=== PATIENT | female | born 1940 | race Caucasian/White ===

== ENCOUNTER 2016-06-29 14:42 | Emergency (ER) | payer MEDICARE, BC ==
[2016-06-29 14:52] VITALS: BP 135/61
[2016-06-29 15:22] LABS: Hematocrit 44 % (35-47); Hemoglobin 14.3 g/dl (12.0-16.0); Mean Corpuscular HGB Conc 33 g/dl (31-36); Mean Corpuscular Hemoglobin 31 pg (27-31); Mean Corpuscular Volume 95 fL (80-97); Mean Platelet Volume 8 um3 (7.4-10.4); Red Blood Count 4.58 10^6/ul (4.0-5.4); Red Cell Distribution Width 13 % (10.5-15); White Blood Count 4.4 10^3/ul (3.5-10.8)
[2016-06-29 15:34] LABS: Albumin 3.9 g/dL (3.2-5.2); BUN/Creatinine Ratio 14.9 (8-20); Calcium 8.8 mg/dL (8.6-10.3); EGFR African American 74.7 (>60); EGFR Non-African American 58.1 (>60); Potassium 3.6 mmol/L (3.5-5.0); Total Bilirubin 0.6 mg/dL (0.2-1.0); Total Protein 6.9 g/dL (6.4-8.9)
[2016-06-29 15:35] LABS: Troponin I 0.01 ng/mL (<0.04)
--- NOTE | 2016-06-29 15:42 | RAD ---
HISTORY: Confusion, altered mental status COMPARISONS: Head CT dated June 09, 2013 TECHNIQUE: Multiple contiguous axial CT scans were obtained of the head without intravenous contrast. FINDINGS: HEMORRHAGE/INFARCT: There is no hemorrhage or acute infarct. MASSES/SHIFT: There is no mass or shift. EXTRA-AXIAL SPACES: There are no extra-axial fluid collections. SULCI AND VENTRICLES: The sulci and ventricles are normal in size and position for the patient's stated age. CEREBRUM: There is multifocal hypoattenuation of the periventricular and subcortical white matter. This is progressed compared to the 2014 examination BRAINSTEM: There are no focal parenchymal abnormalities. CEREBELLUM: There are no focal parenchymal abnormalities. VESSELS: The vessels are grossly normal. PARANASAL SINUSES: The paranasal sinuses are clear. ORBITS: The orbits are unremarkable. BONES AND SOFT TISSUE: No bone or soft tissue abnormalities are noted. OTHER: None IMPRESSION: 1. THERE IS MULTIFOCAL HYPOATTENUATION OF THE PERIVENTRICULAR AND SUBCORTICAL WHITE MATTER. WHILE THIS NONSPECIFIC, THE APPEARANCE IS SUGGESTIVE OF CHRONIC SMALL VESSEL ISCHEMIA. THIS HAS PROGRESSED FROM THE 2014 EXAMINATION. RECOMMEND CONSIDERATION OF CORRELATION WITH MRI OF THE NONACUTE SETTING. 2. NO ACUTE INTRACRANIAL PATHOLOGY.
[2016-06-29 16:51] LABS: Urine Bacteria 1+ (Absent); Urine Bilirubin Negative (Negative); Urine Glucose Negative (Negative); Urine Nitrite Positive (Negative)
[2016-06-29] MEDS ORDERED: cefTRIAXone VIAL(*) 1,000 MG in NS 0.9% 50 ML* 50 ML IVPB ONE (17:12)
[2016-06-29] MEDS ORDERED: cefTRIAXone(*) 1 GM ADVAN/BAG ONE (17:21)
--- NOTE | 2016-06-29 22:15 | ED ---
Alexandre Guevara Aidan, scribed for Monico Fitzpatrick MD on 06/29/16 at 1716 . Neurological HPI - HPI Summary HPI Summary: 75 y/o female presents to the ED with a complaint of 2 acute, moderate episodes of falling/neurological deficits. 3 days ago in the middle of the night, the patient went to the bathroom, lost her way and had an unwitnessed fall in the garage. Her found her unconscious shortly after he heard the fall. After her helped her back into bed, she got up, fell again, and lost consciousness. In the morning, she had no recollection of either incident. 2 days ago during the day, she dropped things on several occasions. Since then, her walk has become more of a shuffle. Pt denies any pain, slurred speech, facial droop, fever, vomiting, diarrhea, or lack or appetite. Hx of Alzheimers for 3 years. - History of Current Complaint Chief Complaint: EDNeurologicalDeficit Stated Complaint: STROKE LIKE SYMPTOMS Time Seen by Provider: 06/29/16 15:12 Hx Obtained From: Family/Heel Seat Flap Stapler - Hx Last Menstrual Period: 75 y/o female Onset/Duration: Sudden Onset, Started days ago, Resolved - Pt is not currently experiencing symptoms Timing: Intermittent Episodes Lasting: Onset Severity: Moderate Current Severity: None Number of Seizures: 0 - no seizures, just episodes of LOC Neurological Deficit Location: Generalized - diffuse Pain Intensity: 0 Pain Scale Used: 0-10 Numeric Character: Other: - 2 episodes of falling and losing consciousness, episodes of dropping objects 2 days ago, Pt's walk has become more of a shuffle Syncope Timin episodes 3 days ago Episode Lasting: Unknown - 1st episode was unwitness, however, Pt was found unconscious Number of Episodes: 2 - first unwitnessed, both resulted in LOC Syncope Context: Unwitnessed - first episode, Witnessed - second episode, Loss of Consciousness: Yes - after both episodes, At Rest - while walking and standing up Frequency: Episodes x___ - 2, Episodes Lasting ____ (in Mins/Days/Weeks/Years) - unknown duration of LOC Syncope Location: All Extremities - generalized LOC both times Aggravating: Nothing - unknown Alleviating: Unknown Associated Signs and Symptoms: Negative: Nothing - episodes of LOC, walk becoming more of a shuffle, Pt was dropping objects unintentionally 2 days ago - Allergy/Home Medications Allergies/Adverse Reactions: Allergies Allergy/AdvReac Type Severity Reaction Status Date / Time No Known Allergies Allergy Verified 06/29/16 14:52 Home Medications: Home Medications Aspirin EC Low Dose* [Ecotrin EC Low Dose*] 81 mg PO DAILY 06/29/16 [History Confirmed 06/29/16] Cholecalciferol [Vitamin D] 1,000 unit PO DAILY 06/29/16 [History Confirmed 08/10] Donepezil TAB* [Aricept TAB*] 10 mg PO DAILY 06/29/16 [History Confirmed ] Escitalopram (NF) [Lexapro (NF)] 30 mg PO DAILY 06/29/16 [History Confirmed 08/10] Memantine XR CAP* [Namenda XR CAP*] 28 mg PO DAILY 06/29/16 [History Confirmed 06/29/16] Multivitamins/Minerals TAB* [Theragran/minerals TAB*] 1 tab PO DAILY 06/29/16 [ History Confirmed 06/29/16] Rosuvastatin (NF) [Crestor (NF)] 10 mg PO DAILY 06/29/16 [History Confirmed 08/10] PMH/Surg Hx/FS Hx/Imm Hx Endocrine/Hematology History: Denies: Hx Diabetes Cardiovascular History: Reports: Hx Angina - prior to angioplasty, Hx Coronary Artery Disease - CHOLESTEROL CONTROL WITH MEDICATION, Hx Hypercholesterolemia, Hx Hypertension, Other Cardiovascular Problems/Disorders - Hx HTN, no longer being treated, Hx of murmur, Hx angioplasty Denies: Hx Pacemaker/ICD Comment Only: Hx Valvular Heart Disease - ANGIOPLASTY R/T VALVE PROBLEMS GI History: Reports: Other GI Disorders - Hx ulcer r/t excess use of excedrin Sensory History: Reports: Hx Contacts or Glasses, Hx Hearing Aid Opthamlomology History: Reports: Hx Contacts or Glasses Neurological History: Reports: Other Neuro Impairments/Disorders - forgetfulness Psychiatric History: Denies: Hx Panic Disorder - Cancer History Hx Chemotherapy: No Hx Radiation Therapy: No - Surgical History Surgery Procedure, Year, and Place: Angioplasty 1990 states no stents, tonsillectomy as a child, cholecystectomy 1968, done in . bilateral cataracts Hx Anesthesia Reactions: No Infectious Disease History: No Infectious Disease History: Denies: Traveled Outside the [place] in Last 30 Days - Family History Known Family History: Positive: Cardiac Disease - Social History Occupation: Retired Lives: With Family Alcohol Use: Weekly Substance Use Type: Reports: None Smoking Status (MU): Former Smoker Review of Systems Constitutional: Negative Eyes: Negative ENT: Negative Cardiovascular: Negative Respiratory: Negative Gastrointestinal: Negative Genitourinary: Negative Musculoskeletal: Negative Skin: Negative Neurological: Other - walk becoming more of a shuffle, Pt dropped things unintentionally 2 days ago Positive: Syncope - 2x, both with LOC Psychological: Normal All Other Systems Reviewed And Are Negative: Yes Physical Exam Triage Information Reviewed: Yes Vital Signs On Initial Exam: Initial Vitals Temp Pulse Resp BP Pulse Ox 98.2 F 70 16 135/61 100 06/29/16 14:46 06/29/16 14:46 06/29/16 14:46 06/29/16 14:46 06/29/16 14:46 Vital Signs Reviewed: Yes Appearance: Positive: Well-Appearing - comfortable, pleasant, alert, No Pain Distress Skin: Positive: Warm, Skin Color Reflects Adequate Perfusion, Dry Head/Face: Positive: Other - no bruising or abrasions, facial or scalp injuries Eyes: Positive: VANDANA ENT: Positive: Other - dry oral mucosa Neck: Positive: Supple, Nontender - soft, No Lymphadenopathy, Other: - no edema , no carotid bruits Respiratory/Lung Sounds: Positive: Clear to Auscultation, Other - comfortably breathing. Negative: Rales, Rhonchi, Wheezes Cardiovascular: Positive: RRR, Other - no gallops, S1, S2. Negative: Pulses are Symmetrical in both Upper and Lower Extremities - Left radial pulse diminished, Murmur, Rub Abdomen Description: Positive: Nontender, Soft. Negative: Distended Bowel Sounds: Positive: Present Musculoskeletal: Positive: Other - calves nontender, no pitting edema. Negative : Edema Left, Edema Right Neurological: Positive: Alert, Oriented to Person Place, Time, CN Intact II-III , Other - Finger to nose intact. Negative: Facial Droop, Slurred Speech, Pronator Drift Present - No pronator drift x4 extremities - Gabe Coma Scale Coma Scale Total: 15 Diagnostics - Vital Signs Vital Signs Temp Pulse Resp BP Pulse Ox 06/29/16 16:24 68 18 98 06/29/16 15:13 72 15 95 06/29/16 14:46 98.2 F 70 16 135/61 100 - Laboratory Lab Results: Lab Results 06/29/16 06/29/16 06/29/16 Range/Units 15:05 15:05 15:05 WBC 4.4 (3.5-10.8) 10^3/ul RBC 4.58 (4.0-5.4) 10^6/ul Hgb 14.3 (12.0-16.0) g/dl Hct 44 (35-47) % MCV 95 (80-97) fL MCH 31 (27-31) pg MCHC 33 (31-36) g/dl RDW 13 (10.5-15) % Plt Count 156 (150-450) 10^3/ul MPV 8 (7.4-10.4) um3 Neut % (Auto) 60.4 (38-83) % Lymph % (Auto) 24.3 L (25-47) % [place] % (Auto) 14.5 H (1-9) % Eos % (Auto) 0.2 (0-6) % Baso % (Auto) 0.6 (0-2) % Absolute Neuts (auto) 2.6 (1.5-7.7) 10^3/ul Absolute Lymphs (auto) 1.1 (1.0-4.8) 10^3/ul Absolute Monos (auto) 0.6 (0-0.8) 10^3/ul Absolute Eos (auto) 0 (0-0.6) 10^3/ul Absolute Basos (auto) 0 (0-0.2) 10^3/ul Absolute Nucleated RBC 0.01 10^3/ul Nucleated RBC % 0.1 Sodium 135 (133-145) mmol/L Potassium 3.6 (3.5-5.0) mmol/L Chloride 102 (101-111) mmol/L Carbon Dioxide 27 (22-32) mmol/L Anion Gap 6 (2-11) mmol/L BUN 14 (6-24) mg/dL Creatinine 0.94 (0.51-0.95) mg/dL Est GFR ( Amer) 74.7 (>60) Est GFR (Non-Af Amer) 58.1 (>60) BUN/Creatinine Ratio 14.9 (8-20) Glucose 94 (70-100) mg/dL Lactic Acid 1.0 (0.5-2.0) mmol/L Calcium 8.8 (8.6-10.3) mg/dL Total Bilirubin 0.60 (0.2-1.0) mg/dL AST 34 (13-39) U/L ALT 25 (7-52) U/L Alkaline Phosphatase 60 (34-104) U/L Troponin I 0.01 (<0.04) ng/mL Total Protein 6.9 (6.4-8.9) g/dL Albumin 3.9 (3.2-5.2) g/dL Globulin 3.0 (2-4) g/dL Albumin/Globulin Ratio 1.3 (1-3) Urine Color Urine Appearance Urine pH (5-9) Ur Specific [place] (1.010-1.030) Urine Protein (Negative) Urine Ketones (Negative) Urine Blood (Negative) Urine Nitrate (Negative) Urine Bilirubin (Negative) Urine Urobilinogen (Negative) Ur Leukocyte Esterase (Negative) Urine WBC (Auto) (Absent) Urine RBC (Auto) (Absent) Ur Squamous Epith Cells (Absent) Urine Bacteria (Absent) Urine Glucose (Negative) Urine Ascorbic Acid (Negative) 06/29/16 Range/Units 16:20 WBC (3.5-10.8) 10^3/ul RBC (4.0-5.4) 10^6/ul Hgb (12.0-16.0) g/dl Hct (35-47) % MCV (80-97) fL MCH (27-31) pg MCHC (31-36) g/dl RDW (10.5-15) % Plt Count (150-450) 10^3/ul MPV (7.4-10.4) um3 Neut % (Auto) (38-83) % Lymph % (Auto) (25-47) % [place] % (Auto) (1-9) % Eos % (Auto) (0-6) % Baso % (Auto) (0-2) % Absolute Neuts (auto) (1.5-7.7) 10^3/ul Absolute Lymphs (auto) (1.0-4.8) 10^3/ul Absolute Monos (auto) (0-0.8) 10^3/ul Absolute Eos (auto) (0-0.6) 10^3/ul Absolute Basos (auto) (0-0.2) 10^3/ul Absolute Nucleated RBC 10^3/ul Nucleated RBC % Sodium (133-145) mmol/L Potassium (3.5-5.0) mmol/L Chloride (101-111) mmol/L Carbon Dioxide (22-32) mmol/L Anion Gap (2-11) mmol/L BUN (6-24) mg/dL Creatinine (0.51-0.95) mg/dL Est GFR ( Amer) (>60) Est GFR (Non-Af Amer) (>60) BUN/Creatinine Ratio (8-20) Glucose (70-100) mg/dL Lactic Acid (0.5-2.0) mmol/L Calcium (8.6-10.3) mg/dL Total Bilirubin (0.2-1.0) mg/dL AST (13-39) U/L ALT (7-52) U/L Alkaline Phosphatase (34-104) U/L Troponin I (<0.04) ng/mL Total Protein (6.4-8.9) g/dL Albumin (3.2-5.2) g/dL Globulin (2-4) g/dL Albumin/Globulin Ratio (1-3) Urine Color Andra Urine Appearance Cloudy Urine pH 6.0 (5-9) Ur Specific [place] 1.017 (1.010-1.030) Urine Protein Negative (Negative) Urine Ketones Trace H (Negative) Urine Blood Negative (Negative) Urine Nitrate Positive H (Negative) Urine Bilirubin Negative (Negative) Urine Urobilinogen Positive H (Negative) Ur Leukocyte Esterase 2+ H (Negative) Urine WBC (Auto) 3+(>20/hpf) H (Absent) Urine RBC (Auto) Trace(0-2/hpf) (Absent) Ur Squamous Epith Cells Present H (Absent) Urine Bacteria 1+ H (Absent) Urine Glucose Negative (Negative) Urine Ascorbic Acid * H (Negative) Result Diagrams: 06/29/16 15:05 06/29/16 15:05 Lab Statement: Any lab studies that have been ordered have been reviewed, and results considered in the medical decision making process. - CT BRAIN CT CT Interpretation: Positive (See Comments) - IMPRESSION: 1. THERE IS MULTIFOCAL HYPOATTENUATION OF THE PERIVENTRICULAR AND SUBCORTICAL WHITE MATTER. WHILE THIS NONSPECIFIC, THE APPEARANCE IS SUGGESTIVE OF CHRONIC SMALL VESSEL ISCHEMIA. THIS HAS PROGRESSED FROM THE 2014 EXAMINATION. RECOMMEND CONSIDERATION OF CORRELATION WITH MRI OF THE NONACUTE SETTING. 2. NO ACUTE INTRACRANIAL PATHOLOGY. CT Interpretation Completed By: Radiologist - EKG EKG 1458 Cardiac Rate: NL - 67 BPM EKG Rhythm: Sinus Rhythm EKG Interpretation: NSR, ST FLAT, J POINT ELEVATION, NO CHANGE FROM EKG ON NIH Scale - NIH Scale Level of Consciousness: Alert/Keenly Responsive Ask Patient the Month and His/Her Age: Both Correct Ask Pt to Open/Close Eyes and Health Program Specialist/Release Non-Paretic Hand: Both Correctly Best Gaze (Only Horizontal Eye Movement): Normal Visual Field Testing: No Visual Loss Facial Paresis-Pt to Smile & Close Eyes or Grimace Symmetry: Normal/Symmetrical Motor Function - Right Arm: No Drift-Holds 10 Seconds Motor Function - Left Arm: No Drift-Holds 10 Seconds Motor Function - Right Leg: No Drift-Holds 10 Seconds Motor Function - Left Leg: No Drift-Holds 10 Seconds Limb Ataxia-Must be out of Proportion to Weakness Present: Absent Sensory (Use Pinprick to Test Arms/Legs/Trunk/Face): Normal Best Language (Describe Picture, Name Items): No Aphasia Dysarthria (Read Several Words): Normal Extinction and Inattention: No Abnormality Total Score: 0 Course/Dx - Course Course Of Treatment: 3 days ago in the middle of the night, the 75 y/o patient went to the bathroom, lost her way and had an unwitnessed fall in the garage. Her found her unconscious shortly after he heard the fall. After her helped her back into bed, she got up, fell again, and lost consciousness. In the morning, she had no recollection of either incident. 2 days ago during the day, she dropped things on several occasions. Since then, her walk has become more of a shuffle. Pt denies any pain, slurred speech, facial droop, fever, vomiting, diarrhea, or lack or appetite. Hx of Alzheimers for 3 years. She had slightly increased confusion and increased imbalance and falls. No outright signs of sepsis clinically or by workup. She is very attentive and has close family who agreed to keep a close eye on her over the weekend. This seems to be a UTI exacerbating her Alzheimers. Should there be any worsening symptoms, fever, or more falls, she will return immediately. we have considered cva but she has not had focal defecits of symptoms. it has mainly been global weakness or imbalance. - Differential Dx Differential Diagnoses Neuro: Positive: Alcohol Abuse, Anxiety, Moeller's Palsy, Benign Paroxysmal Positional Vertigo, Carbon Monoxide Poisoning, Cephalgia, Cerebrovascular Accident, Concussion, Contusion, Coronary Artery Disease, Dysrhythmia, Encephalitis, GI Bleed, Headache, Hematoma, Hemorrhage, Hypertension, Hyperthermia, Hypoglycemia, Hypothermia, Hypovolemia, Labyrinthitis, Medication Reaction, Meningitis, Metastatic Disease, Transient Ischemic Attack, Viral Syndrome - Diagnoses Provider Diagnoses: UTI (urinary tract infection) Discharge - Discharge Plan Condition: Good Disposition: HOME Prescriptions: Cephalexin CAP* [Keflex CAP*] 500 mg PO TID #21 cap Patient Education Materials: Urinary Tract Infection in Women (ED) Referrals: Roscoe Malhotra MD [Primary Care Provider] - 3 Days The documentation as recorded by the Alexandre elizondo Aidan accurately reflects the service I personally performed and the decisions made by me, Monico Fitzpatrick MD. Addendum entered and electronically signed by Yesenia Romero PA 07/02/16 08: 40: ED Addendum Addendum: Patient urine culture grew e coli >100,000. Was placed on Keflex at d/c which is sensitive too so no further action needed.
== END 2016-06-29 17:55 | disposition home or self-care (01) ==
LOC: ED 14:42
DX: N39.0 Urinary tract infection, site not specified (principal)
CPT/HCPCS: 36415; 70450; 80053; 81003; 81015; 83605; 84484; 85025; 87077; 87086; 87186; 93005; 99283; J0696

== ENCOUNTER 2016-07-15 01:02 | Inpatient (IN) | payer MEDICARE, BC ==
[2016-07-15 01:22] LABS: Hematocrit 40 % (35-47); Hemoglobin 13.4 g/dl (12.0-16.0); Mean Corpuscular HGB Conc 33 g/dl (31-36); Mean Corpuscular Hemoglobin 31 pg (27-31); Mean Corpuscular Volume 95 fL (80-97); Mean Platelet Volume 8 um3 (7.4-10.4); Red Blood Count 4.27 10^6/ul (4.0-5.4); Red Cell Distribution Width 13 % (10.5-15); White Blood Count 7.5 10^3/ul (3.5-10.8)
--- NOTE | 2016-07-15 01:24 | ED ---
Cynthia Guevara Michael, scribed for Federico Yoon MD on 07/15/16 at 0123 . HPI Cardiac - HPI Summary HPI Summary: 75 y/o female was BIBA to the ED presenting with bilateral jaw pain and bilateral shoulder pain when she woke up from sleeping tonight. The pt describes the pain as an ache. She denies SOB and nausea. 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 Her sx were alleviated before she was given one one nitro per EMS. The PMHx is significant for angioplasty and Alzheimer's. Pt was a STEMI while arriving to the ED. - History of Current Complaint Stated Complaint: STEMI Time Seen by Provider: 07/15/16 01:08 Hx Obtained From: Patient, EMS, Medical Records Onset/Duration: Started Minutes Ago Timing: Intermittent Initial Severity: Moderate Current Severity: Moderate Character: Other: - ache Aggravating Factor(s): Nothing Alleviating Factor(s): Spontaneous Resolution Associated Signs and Symptoms: Positive: Other: - jaw pain. shoulder pain.. Negative: Shortness of Breath, Nausea - Allergy/Home Medications Allergies/Adverse Reactions: Allergies Allergy/AdvReac Type Severity Reaction Status Date / Time No Known Allergies Allergy Verified 06/29/16 14:52 PMH/Surg Hx/FS Hx/Imm Hx Endocrine/Hematology History: Denies: Hx Diabetes Cardiovascular History: Reports: Hx Angina - prior to angioplasty, Hx Coronary Artery Disease - CHOLESTEROL CONTROL WITH MEDICATION, Hx Hypercholesterolemia, Hx Hypertension, Other Cardiovascular Problems/Disorders - Hx HTN, no longer being treated, Hx of murmur, Hx angioplasty Denies: Hx Pacemaker/ICD Comment Only: Hx Valvular Heart Disease - ANGIOPLASTY R/T VALVE PROBLEMS GI History: Reports: Other GI Disorders - Hx ulcer r/t excess use of excedrin Sensory History: Reports: Hx Contacts or Glasses, Hx Hearing Aid Opthamlomology History: Reports: Hx Contacts or Glasses Neurological History: Reports: Other Neuro Impairments/Disorders - forgetfulness Psychiatric History: Denies: Hx Panic Disorder - Cancer History Hx Chemotherapy: No Hx Radiation Therapy: No - Surgical History Surgery Procedure, Year, and Place: Angioplasty 1990 states no stents, tonsillectomy as a child, cholecystectomy 1968, done in . bilateral cataracts Hx Anesthesia Reactions: No - Family History Known Family History: Positive: Cardiac Disease - Social History Occupation: Retired Lives: With Family Alcohol Use: Weekly Substance Use Type: Reports: None Smoking Status (MU): Former Smoker Review of Systems Negative: Shortness Of Breath Negative: Nausea Positive: Other - shoulder and jaw pain. All Other Systems Reviewed And Are Negative: Yes Physical Exam Triage Information Reviewed: Yes Vital Signs Reviewed: Yes Appearance: Positive: Well-Appearing, No Pain Distress Skin: Positive: Warm Head/Face: Positive: Normal Head/Face Inspection Eyes: Positive: VANDANA ENT: Positive: Hearing grossly normal Neck: Positive: Supple Respiratory/Lung Sounds: Positive: Breath Sounds Present Cardiovascular: Positive: RRR Neurological: Positive: Sensory/Motor Intact Diagnostics - Laboratory Result Diagrams: 07/15/16 01:05 07/15/16 01:05 Lab Statement: Any lab studies that have been ordered have been reviewed, and results considered in the medical decision making process. Disposition - Diagnoses Provider Diagnoses: ACS (acute coronary syndrome) Discharge - Discharge Plan Condition: Fair Disposition: ADMITTED TO [facility] documentation as recorded by the Cynthia elizondo Michael accurately reflects the service I personally performed and the decisions made by Car marks David, MD.
[2016-07-15 01:36] LABS: Albumin 3.6 g/dL (3.2-5.2); BUN/Creatinine Ratio 16.3 (8-20); Calcium 9.3 mg/dL (8.6-10.3); EGFR African American 89.9 (>60); EGFR Non-African American 69.9 (>60); Globulin 2.7 g/dL (2-4); Total Bilirubin 0.3 mg/dL (0.2-1.0); Total Protein 6.3 g/dL (6.4-8.9)
[2016-07-15 01:41] LABS: Potassium 3.7 mmol/L (3.5-5.0); Troponin I 0.02 ng/mL (<0.04)
[2016-07-15] MEDS ORDERED: Iohexol 350 (CONTRAST) 200 ML MDV IV ONE (02:06)
[2016-07-15] MEDS ORDERED: Heparin 2 UNITS/ML IVPREMIX* 3,000 ML IV ONE (02:06)
[2016-07-15] MEDS ORDERED: fentaNYL* 50 MCG/ML 2 ML VIAL (100 MCG VIAL) ONE (02:06)
[2016-07-15] MEDS ORDERED: nitroGLYCERIN DRIP* 250 ML ONE ×2 (02:06→02:11)
[2016-07-15] MEDS ORDERED: Midazolam* 1 MG/ML 5 ML VIAL (5 MG) ONE (02:06)
[2016-07-15] MEDS ORDERED: Lidocaine 1% INJ* 10 MG/ML 30 ML SDV ONE (02:06)
[2016-07-15] MEDS ORDERED: Bivalirudin(*) 250 MG VIAL ONE (02:11)
[2016-07-15] MEDS ORDERED: Nitroglycerin TAB 0.4 MG* 0.4 MG TAB SL PRN (02:54)
[2016-07-15] MEDS ORDERED: Acetaminophen TAB* 325 MG PO PRN (02:54)
[2016-07-15] MEDS ORDERED: NS 0.9% 1000 ML* 1,000 ML IV SCH (03:00)
[2016-07-15] MEDS ORDERED: Atorvastatin* 40 MG TAB PO SCH (03:00)
[2016-07-15] MEDS ORDERED: nitroGLYCERIN DRIP* 25,000 MCG in PREMIX* 0 ML IV SCH (04:00)
[2016-07-15] MEDS: Ticagrelor* 90 MG TAB PO SCH ×2 (08:21→21:00)
[2016-07-15 08:52] LABS: Hematocrit 37 % (35-47); Hemoglobin 12.4 g/dl (12.0-16.0); Mean Corpuscular HGB Conc 34 g/dl (31-36); Mean Corpuscular Hemoglobin 32 pg (27-31); Mean Corpuscular Volume 95 fL (80-97); Mean Platelet Volume 7 um3 (7.4-10.4); Red Blood Count 3.86 10^6/ul (4.0-5.4); Red Cell Distribution Width 13 % (10.5-15); White Blood Count 7.4 10^3/ul (3.5-10.8)
[2016-07-15 09:17] LABS: Albumin 3.3 g/dL (3.2-5.2); BUN/Creatinine Ratio 20.8 (8-20); Calcium 8.5 mg/dL (8.6-10.3); EGFR African American 101.6 (>60); Globulin 2.5 g/dL (2-4); Potassium 4.1 mmol/L (3.5-5.0); Total Bilirubin 0.5 mg/dL (0.2-1.0); Total Protein 5.8 g/dL (6.4-8.9)
[2016-07-15 09:28] LABS: Troponin I 5.2 ng/mL (<0.04)
--- NOTE | 2016-07-15 11:46 | ECHO ---
Patient: ZENIA FISHER [facility] Rec#: [id number] : 1940 Date: 07/15/2016 Age: 75y Height: 154 cm / 60.6 in Weight: 66 kg / 145.5 lbs Sex: F BSA: 1.64 Room#: [facility] Admit Date#: 07/15/2016 Type: Inpatient Referring: Hossein Wallace MD Reading: Hossein Wallace MD Administrative Specialist: Nilson Menendez RDCS Transthoracic Echocardiogram BP: 124/51 HR: 119 Rhythm: Tachycardia Findings History: COPD Technical Comments: The study quality is fair. Completed 1100 Left Ventricle: The left ventricular chamber size is normal. Global left ventricular wall motion and contractility are within normal limits. There is normal left ventricular systolic function.The diastolic function analysis is incomplete, no pulmonary vein analysis is present. The estimated ejection fraction is 55-60%. Left Atrium: The left atrial chamber size is normal. Right Ventricle: The right ventricular cavity size is normal. The right ventricular global systolic function is normal. Right Atrium: The right atrial cavity size is normal. Aortic Valve: The aortic valve is trileaflet. There is no evidence of aortic regurgitation. There is no evidence of aortic stenosis. Mitral Valve: The mitral valve leaflets appear normal. There is a trace of mitral regurgitation. Tricuspid Valve: There is trace to mild tricuspid regurgitation. Unable to estimate the right ventricular systolic pressure. Pulmonic Valve: The pulmonic valve appears normal. There is a trace pulmonic regurgitation. Pericardium: There is no pericardial effusion. Aorta: There is no dilatation of the ascending aorta. There is no dilatation of the aortic arch. There is no dilation of the aortic root. Pulmonary Artery: The main pulmonary artery appears normal. Venous: The inferior vena cava appears normal in size. There is a greater than 50% respiratory change in the inferior vena cava dimension. Conclusions The left ventricular chamber size is normal. There is normal left ventricular systolic function. The estimated ejection fraction is 55-60%. No significant valvular disease: There is a trace of mitral regurgitation. There is trace to mild tricuspid regurgitation. There is a trace pulmonic regurgitation. No reports of prior studies are offered for comparison. Measurements Name Value Normal Range RVIDd (AP) 2D 1.8 cm (0.9 - 2.6) RVDdMajor (2D) 2.6 cm (2.2 - 4.4) RAd ISD 4CH 4.6 cm (3.4 - 4.9) RA (A4C)W 1.8 cm (2.9 - 4.6) IVSd (2D) 0.8 cm (0.6 - 1) LVPWd (2D) 0.8 cm (0.6 - 1) LVIDd (2D) 3.9 cm (3.6 - 5.4) LVIDs (2D) 2.4 cm - LV FS (2D) 37 % (25 - 45) Aortic Annulus 1.6 cm (1.4 - 2.6) Ao root diameter (2D) 2.2 cm (2.1 - 3.5) Ascending Ao 2.2 cm (2.1 - 3.4) Aortic arch 1.6 cm (1.8 - 3.4) LA dimension (AP) 2D 2.5 cm (2.3 - 3.8) LAd ISD 4CH 4.3 cm (2.9 - 5.3) LA ISD 4CH W 2.7 cm (2.5 - 4.5) Name Value Normal Range LA ESV SP 4CH (A/L) 13 ml - LA ESV SP 2CH (A/L) 25 ml - LA ESV BP (A/L) 20 ml - LA ESV BP (A/L) index 11.85 ml/m2 - LA ESV SP 4CH (MOD) 12 ml - LA ESV SP 2CH (MOD) 25 ml - Name Value Normal Range MV E-wave Vmax 0.76 m/sec - MV deceleration time 243 msec - MV A-wave Vmax 0.85 m/sec - MV E:A ratio 0.85 ratio - LV septal e' Vmax 0.08 m/sec - LV lateral e' Vmax 0.08 m/sec - LV E:e' septal ratio 9.5 ratio - LV E:e' lateral ratio 9.5 ratio - Name Value Normal Range LVOT diameter 1.5 cm - LVOT Vmax 1 m/sec - Name Value Normal Range IVC diameter 1.65 cm - Name Value Normal Range PV Vmax 1 m/sec -
--- NOTE | 2016-07-15 12:14 | HP ---
ADMISSION HISTORY AND PHYSICAL: DATE OF ADMISSION: 07/15/16 CHIEF COMPLAINT: The patient with jaw discomfort and bilateral arm discomfort with EKG with ST-segment elevation inferior wall myocardial infarction. HISTORY OF PRESENT ILLNESS: The patient is a pleasant 75-year-old female who was evaluated back in 2008 for assessment of an abnormal stress test raising the question of inferior wall ischemia. She was seen at that time by Dr. Mcgregor and underwent cardiac catheterization by Dr. Israel Gonzalez on 01/26/09. At that point, the left anterior descending artery had mild disease, the circumflex had no significant disease, and the right coronary artery had a proximal 50% to 60% noncritical lesion. Left ventriculography revealed normal left ventricular wall motion with an EF of 55%. She was treated for high cholesterol and followed along clinically. According to her , it was approximately one in the morning when she went to the bathroom, came back to bed, and said she was just not feeling right. Her jaw was aching, both arms ached. He gave her 325 mg of aspirin, had her sit up in the chair in the other room, and when the symptom would not go away, he called 911. The paramedics came and performed an EKG, which demonstrated ST segment elevation inferiorly and a STEMI alert was called. On arrival, she was doing fairly well with mild discomfort, but definitely improved. In the emergency room, she received heparin 4000 units and Brilinta 180 mg. As mentioned, she had already received aspirin and has been on 81 mg of aspirin a day. The risks and benefits were explained to her in the presence of her given the fact that she has Alzheimer's disease. She wished to proceed with cardiac catheterization as he did and as such, the decision was made to go to the cardiovascular laboratory. PAST MEDICAL HISTORY: Includes Alzheimer's disease and hyperlipidemia. They deny any history of hypertension or diabetes. REVIEW OF SYSTEMS: Pertinent to proceeding to the cardiovascular laboratory, the patient and denied any prior history of stroke, TIA, any history of renal failure, any history of hematochezia, hematemesis or hematuria. No knowledge of any dye allergy. PHYSICAL EXAMINATION When I saw her in the emergency room revealed. VITAL SIGNS: Blood pressure 136/55, pulse 75 and regular, respirations 20, O2 saturation 94% on room air. HEENT: Conjunctivae are pink. Sclerae are clear. Mouth reveals moist mucosa. NECK: Supple. No increased JVP. LUNGS: Cleared to A and P. HEART: Revealed no visible heaves. No palpable heaves or thrills. Question of a soft systolic murmur distant in nature, difficult to appreciate given the commotion in the emergency room. ABDOMEN: Soft, nontender without organomegaly. EXTREMITIES: Without clubbing, cyanosis or amee pitting edema. Peripheral pulses are intact. Femoral pulse present without bruit. NEUROLOGIC: The patient is alert. She is forgetful due to her Alzheimer's disease. MUSCULOSKELETAL: She moves all extremities appropriately. PSYCHOLOGICAL: The patient with normal affect. LABORATORY DATA: Repeat EKG in the emergency room dated 07/15/16, timed 1:[address] segmental elevation in II, III, aVF with mild reciprocal change in aVL, also mild ST segment elevation, a J-point elevation was seen subtly in V3 and V4, more prominent in V5, and minimally in V6. OVERALL ASSESSMENT: Arelis presents now in the throes of an acute inferior wall myocardial infarction. She has received heparin therapy, Brilinta therapy , and aspirin therapy. The risks and benefits were explained to her and more importantly her given her Alzheimer's disease. Both agree and wished to proceed with it. As such, we will proceed to the cardiovascular laboratory and adjust management pending the results. CC: Roscoe Malhotra MD * [id number]/[facility] #: [id number] MTDD
[2016-07-15] MEDS: Donepezil TAB* 5 MG PO SCH (14:53)
[2016-07-15] MEDS: Memantine XR CAP* 28 MG CAP.XR PO SCH (14:53)
[2016-07-15 15:20] LABS: Troponin I 4.44 ng/mL (<0.04)
--- NOTE | 2016-07-15 20:13 | CONS ---
HOSPITAL MEDICINE CONSULTATION REPORT: DATE OF CONSULT: 07/15/16 PRIMARY CARE PHYSICIAN: Dr. Malhotra. ATTENDING PHYSICIAN: Dr. Hossein Wallace. CONSULTING PHYSICIAN: Dr. Pepper Bailon (dictation provided by Manisha Boogie NP) . REASON FOR CONSULT: Medical co-management in a patient with dementia and anxiety. HISTORY OF PRESENT ILLNESS: Ms. Segura is a 75-year-old female with past medical history of coronary artery disease, hyperlipidemia, dementia and anxiety , who presented to the hospital in the resident services manager hours of 07/15/16 with complaints of chest and jaw pain. Please see the dictated H and P from Dr. Wallace for complete details. In brief, the patient's initial troponin was 0.02 , but her EKG showed a ST elevation VA. She was taken to the cardiac medical lab tech instructor where a stent was placed to her right coronary artery. The patient has been doing well status post her procedure, but Hospital Medicine has been called regarding co-management of patient's chronic anxiety and dementia. In addition , there is concern that her lexapro dose is higher than the recommended dose. Ms. Segura states she is feeling well this morning. She does remember coming to the hospital for chest pain. She is eager to be discharged to home. She has no complaints and is in good spirits. PAST MEDICAL HISTORY: 1. Anxiety. 2. Dementia. 3. Hyperlipidemia. 4. History of known coronary artery disease. MEDICATIONS: Outpatient are: 1. Aspirin 81 mg p.o. daily. 2. Cholecalciferol 1000 units p.o. daily. 3. Multivitamin 1 tab p.o. daily. 4. Rosuvastatin 10 mg p.o. daily. 5. Donepezil 10 mg p.o. daily. 6. Lexapro 30 mg p.o. daily. 7. Namenda 28 mg p.o. daily. 8. Cephalexin 500 mg p.o. t.i.d. ALLERGIES: No known drug allergies. FAMILY HISTORY: Family history reviewed and were noncontributory. SOCIAL HISTORY: No report of alcohol, tobacco, or drug use. The patient lives with her , who is the healthcare proxy. REVIEW OF SYSTEMS: A 14-point review of systems was completed with Ms. Segura and all those not mentioned above were negative. PHYSICAL EXAM: Temperature 98.2, heart rate 64, respiratory rate 13, O2 saturation 96% on room air, blood pressure 139/51. General: Ms. Segura is lying in the bed. She is in no acute distress. She is calm and cooperative on my examination. Neuro: She is alert and oriented x3. At this point, she moves all extremities. There is no facial asymmetry or focal weakness. Extraocular movements are intact. Heart: S1, S2. No murmur, rub, or gallop, and regular. Lungs are clear to auscultation bilaterally with no accessory muscle use, and good aeration. The abdomen is soft and nontender. Bowel sounds positive x4. Extremities: No cyanosis or edema. Skin is intact. The patient has a weighted bag to the right groin at the site of the cath site which was not examined. DIAGNOSTIC STUDIES/LAB DATA: Sodium 138, potassium 3.7, chloride 104, serum bicarbonate 27, BUN 13, creatinine 0.80, glucose 110, lactic acid 1.4. Troponin 0.02. WBC 7.4, hemoglobin 12.4, hematocrit 37, platelet count 257. INR 0.86. EKG on arrival shows an ST-elevation VA in leads II, III, and aVF. ASSESSMENT AND PLAN: Ms. Segura is a 75-year-old female with past medical history of dementia and anxiety, who presented to the hospital in the resident services manager hours of 07/15/16, with complaint of chest pain, found to have ST- elevation myocardial infarction and was taken to the cardiac medical lab tech instructor for right coronary artery stent. In the post-procedure period, Cardiology has requested consultation for medical co- management. 1. ST-elevation myocardial infarction: Management will continue per Dr. Wallace. 2. Dementia. Continue Namenda. 3. Anxiety. The patient is on a higher dose recommended for her Lexapro. This was started by Dr. Sloan over a year ago. She has been tolerating it well. Plan to continue. 4. Hyperlipidemia. Continue atorvastatin. 5. UTI: Patient's medication reconcilliation notes keflex which patient had been on for a UTI outpatient. Per the report, patient had completed the course of antibiotics. 6. DVT prophylaxis. The patient is on SCDs, and has received anticoagulation as part of her cardiac catheterization. No other chemical prophylaxis has been ordered per Dr. Wallace. 7. Code Status: Full code. 8. Disposition will be per Dr. Wallace. TIME SPENT: Approximately 30 minutes was spent in the consultation of this patient, more than half the time was spent with her and her daughter at the bed side, reviewing the events leading up to this hospitalization, performing the physical examination, and reviewing the plan of care. MANISHA BOOGIE NP CC: Dr. Malhotra * [id number]/[facility] #: [id number] ANUPAM
[2016-07-15] MEDS: Aspirin Low Dose CHEW TAB* 81 MG PO SCH (21:00)
[2016-07-15 21:36] LABS: Troponin I 3.64 ng/mL (<0.04)
--- NOTE | 2016-07-16 02:55 | CATH ---
CARDIAC CATHETERIZATION AND INTERVENTIONAL REPORT: DATE OF PROCEDURE: 07/15/16 - ROOM #ICU-08 INDICATION FOR THE PROCEDURE: The patient with acute ST segment elevation inferior wall myocardial infarction. PROCEDURES: Coronary arteriography, primary stenting of the proximal right coronary artery utilizing a 3.5 x 20-mm Long Synergy drug-eluting stent post dilated to high pressures to obtain 3.65 mm, left heart catheterization, hand injection, left ventriculography. DESCRIPTION OF PROCEDURE: The patient was interviewed and examined in the emergency room where the risks and benefits were explained to the patient and her given the patient's Alzheimer's disease. They understood and wished to proceed. She was brought to the cardiovascular laboratory where a formal time-out was performed. The patient was prepped and draped in a sterile fashion. The right groin was anesthetized with 1% lidocaine. The right femoral artery was cannulated and a 6.5 sheath was placed. Coronary arteriography was performed to the left coronary artery utilizing a 5-Serbian FL 3.5 curve left coronary catheter. The right coronary artery catheter was cannulated utilizing a 5-Serbian FR4 curve catheter. Decision was then made to intervene into the proximal right coronary artery. The patient had an ACT checked and it was found to be subtherapeutic. As such, Angiomax bolus was given and an Angiomax drip was started. An 0.014 All-Star wire was advanced down the right coronary artery and a 3.5 x 20 mm long Synergy drug-eluting stent was deployed with post deployment inflation utilizing a 3.5 x 12 mm NC Emerge balloon. Following this, central aortic pressure was recorded using an angled pigtail catheter advanced to the ascending aorta. The catheter was then passed across the aortic valve into the left ventricle where left ventricular pressure was recorded. Left ventriculography was performed utilizing hand injection of 8 to 10 cc of Omnipaque dye. Following this, the catheter was pulled back across the aortic valve to recheck gradient. An injection was then made into the right femoral sheath to assess eligibility of the closure device and to utilize closure device. It was found to be somewhat high and as such, a closure device was not used. The sheath was sutured in place for manual pull in the intensive care unit at a later time. The total contrast used was 85 cc of Omnipaque dye. The radiation exposure included 9.2 minutes of fluoro time. The air kerma radiation was 758 mGy. RESULTS: HEMODYNAMIC DATA: Left heart catheterization - central aortic pressure recorded at 184/63 with a mean of 112, left ventricular pressure 186 over left ventricular end- diastolic pressure of 18. CORONARY ARTERIOGRAPHY: A. Left coronary artery: 1. Left main - widely patent with no significant lesion. 2. Left anterior descending artery - there was calcium extending in to the proximal and mid portion of the left anterior descending artery. The proximal portion of the LAD had an area of 35% to 40% narrowing. The mid to distal LAD had an area of 50% narrowing in a small caliber segment. The diagonal branches had no significant disease, although the more proximal ones appeared to be small in caliber. 3. Circumflex artery - a nondominant vessel supplying a thin first and second obtuse marginal branch with a moderate size third obtuse marginal branch and no significant obstruction was seen. B. Right coronary artery - a dominant vessel supplying a moderate size low lying acute marginal branch which paralleled the thinner PDA. This continued to supply posterior left ventricular branch, moderate size. There was calcium seen in the wall of the aorta around the ostium and in the proximal and midportion of this vessel. The proximal portion was noted to have a hazy dissected appearance with KONSTANTIN 2.5 to 3 flow with critical 90% stenosis noted. Following this was an area of narrowing of approximately 35%. INTERVENTION INTO RIGHT CORONARY ARTERY: Successful reduction of critical 90% dissected appearing area utilizing primary stenting with a 3.5 x 20 mm long Synergy drug-eluting stent postdilated to high pressures to obtain 3.65 mm with KONSTANTIN 3 flow. No dissection seen and 0 % residual stenosis within the prior critically stenosed area. LEFT VENTRICULOGRAPHY: Performed in the [place] projection revealed well-preserved left ventricular systolic function. It was a suboptimal injection, but no focal wall motion abnormality was identified. OVERALL ASSESSMENT: Successful intervention into critically stenosed proximal right coronary artery reducing 90% stenosis to 0% placing a 3.5 x 20 mm long Synergy drug- eluting stent postdilated to 3.65 mm. Aggressive risk factor management with dual antiplatelet therapy, high-dose statin therapy will be pursued. CC: Dr. Roscoe Malhotra* [id number]/[facility] #: [id number] ANUPAM
[2016-07-16 06:19] LABS: Hematocrit 38 % (35-47); Hemoglobin 12.5 g/dl (12.0-16.0); Mean Corpuscular HGB Conc 33 g/dl (31-36); Mean Corpuscular Hemoglobin 31 pg (27-31); Mean Corpuscular Volume 95 fL (80-97); Mean Platelet Volume 8 um3 (7.4-10.4); Red Blood Count 3.99 10^6/ul (4.0-5.4); Red Cell Distribution Width 13 % (10.5-15); White Blood Count 6.3 10^3/ul (3.5-10.8)
[2016-07-16 06:36] LABS: BUN/Creatinine Ratio 15.1 (8-20); Calcium 8.6 mg/dL (8.6-10.3); EGFR Non-African American 77.7 (>60); HDL Cholesterol 63.3 mg/dL; Potassium 4.4 mmol/L (3.5-5.0)
[2016-07-16] MEDS: Memantine XR CAP* 28 MG CAP.XR PO SCH (08:17)
[2016-07-16] MEDS: Donepezil TAB* 5 MG PO SCH (08:18)
[2016-07-16] MEDS: Aspirin Low Dose CHEW TAB* 81 MG PO SCH (08:18)
[2016-07-16] MEDS: CMC:Escitalopram (NF) 10 MG TAB PO SCH (08:18)
[2016-07-16] MEDS: CMC:Rosuvastatin (NF) 10 MG TAB PO SCH (08:19)
[2016-07-16] MEDS: Ticagrelor* 90 MG TAB PO SCH ×2 (08:20→20:48)
[2016-07-16] MEDS: Metoprolol Tartrate TAB* 25 MG PO SCH ×2 (11:33→20:48)
--- NOTE | 2016-07-16 16:54 | PN ---
Subjective Date of Service: 07/16/16 Interval History: Patient seen this afternoon with and son present. Says she feels well, no recurrence of arm discomfort. No complaints. Hopeful for discharge tomorrow. Family History: Unchanged from Admission Social History: Unchanged from Admission Past Medical History: Unchanged from Admission Objective Active Medications: Acetaminophen (Tylenol Tab*) 650 mg PO Q4H PRN Aspirin (Aspirin Low Dose Tab*) 81 mg PO DAILY [facility] Donepezil HCl (Aricept Tab*) 10 mg PO DAILY [facility] Escitalopram Oxalate (Lexapro (Nf)) 30 mg PO DAILY [facility] Memantine (Namenda Xr Cap*) 28 mg PO DAILY [facility] Metoprolol Tartrate (Lopressor Tab*) 25 mg PO BID [facility] Nitroglycerin (Nitroglycerin Tab 0.4 Mg*) 0.4 mg SL Q5M PRN Rosuvastatin Calcium (Crestor (Nf)) 10 mg PO DAILY [facility] Ticagrelor (Brilinta*) 90 mg PO BID [facility] Vital Signs 07/15/16 07/15/16 07/15/16 16:51 17:00 17:57 Temperature Pulse Rate 72 Respiratory 15 16 20 Rate Blood Pressure 136/60 (mmHg) O2 Sat by Pulse 95 Oximetry 07/15/16 07/15/16 07/16/16 23:00 23:46 00:00 Temperature 98.7 F Pulse Rate 67 69 70 Respiratory 14 14 15 Rate Blood Pressure 103/32 (mmHg) O2 Sat by Pulse 94 93 93 Oximetry 07/16/16 07/16/16 07/16/16 00:01 01:00 02:00 Temperature Pulse Rate 68 69 69 Respiratory 15 12 12 Rate Blood Pressure 113/29 119/42 114/48 (mmHg) O2 Sat by Pulse 94 95 94 Oximetry 07/16/16 07/16/16 12:07 12:10 Temperature 98.7 F Pulse Rate 63 Respiratory 18 16 Rate Blood Pressure 154/57 (mmHg) O2 Sat by Pulse 98 Oximetry Oxygen Devices in Use Now: None Appearance: Elderly, F, sitting in chair in NAD Eyes: No Scleral Icterus Ears/Nose/Mouth/Throat: Mucous Membranes Moist Neck: NL Appearance and Movements; NL JVP Respiratory: Symmetrical Chest Expansion and Respiratory Effort, Clear to Auscultation Cardiovascular: NL Sounds; No Murmurs; No JVD, RRR Extremities: No Edema Neurological: - - Alert, poor memory, no focal deficits Result Diagrams: 07/16/16 06:05 07/16/16 06:05 Assess/Plan/Problems-Billing Assessment: STEMI s/p RCA stent in a 75 yo F with hx of dementia, anxiety - Patient Problems (1) STEMI (ST elevation myocardial infarction) Current Visit: Yes Comment: Management as per cardiology, patient is on ASA, brilinta, crestor, metoprolol (held this AM) (2) Dementia Current Visit: Yes Comment: Continue Namenda and Aricept (3) Anxiety Current Visit: Yes Comment: Continue Lexapro
[2016-07-17 07:27] VITALS: BP 95/58
[2016-07-17] MEDS: Metoprolol Tartrate TAB* 25 MG PO SCH (08:13)
[2016-07-17] MEDS: CMC:Escitalopram (NF) 10 MG TAB PO SCH (08:16)
[2016-07-17] MEDS: Donepezil TAB* 5 MG PO SCH (08:16)
[2016-07-17] MEDS: Ticagrelor* 90 MG TAB PO SCH (08:16)
[2016-07-17] MEDS: Memantine XR CAP* 28 MG CAP.XR PO SCH (08:16)
[2016-07-17] MEDS: Aspirin Low Dose CHEW TAB* 81 MG PO SCH (08:16)
[2016-07-17] MEDS: CMC:Rosuvastatin (NF) 10 MG TAB PO SCH (08:16)
--- NOTE | 2016-07-17 23:23 | DS ---
DISCHARGE SUMMARY: DATE OF ADMISSION: 07/15/16 DATE OF DISCHARGE: 07/17/16 PRIMARY: Dr. Roscoe Malhotra. DISCHARGE DIAGNOSES: 1. Inferior wall ST elevation infarct. 2. Alzheimer's disease. 3. Dyslipidemia. 4. Nicorette gum use. PROCEDURES: Cardiac cath, stent placement RCA 3.5 x 20 Synergy drug-eluting stent, 07/15/16, Dr. Wallace. CONDITION ON DISCHARGE: Stable. DISCHARGE MEDICATIONS: 1. Aspirin 81 mg daily. 2. Aricept 10 mg daily. 3. Lexapro 30 mg daily. 4. Memantine XR 28 mg daily. 5. Lopressor 25 b.i.d. 6. Nitroglycerin 0.4 sublingual p.r.n. 7. Crestor 10 mg daily. 8. Brilinta 90 b.i.d. FOLLOWUP: Follow up with Dr. Wallace next week for wound check, with Dr. Malhotra as before. ACTIVITY: No strenuous exertion for 1 week. To not lift more than 20 pounds for 3 days. WOUND CARE: Shower only for 3 days. DIET: Low-fat, low-cholesterol. HISTORY: See H and P. DIAGNOSTIC STUDIES/LAB DATA: On 07/16/16, post PCI hemoglobin and hematocrit, platelet count were stable. BMP on 07/16/16, normal with potassium 4.4, creatinine 0.73. Her troponin peaked at 5.2, MB at 59. Her LDL on admission was 72, total cholesterol 150, triglycerides 74, HDL 63.3, on her Crestor 10 mg daily. BNP was normal at 34. EKG, 07/17/16, shows left axis, low voltage, decreased R-wave in V3 from V2, and no diagnostic inferior Q-waves. She has very minimal ST elevation in the lateral precordial leads with terminal T-wave change. HOSPITAL COURSE: She presented with an inferior wall ST elevation infarct, underwent emergent catheterization by Dr. Wallace via the right femoral approach without complications, was found to have a high-grade right coronary artery stenosis that was stented with a drug-eluting stent with an excellent angiographic results. LV gram showed preserved LV systolic function without any identifiable wall motion abnormality, and with normal ejection fraction. Post-intervention, she had no chest pain, heart failure, groin complications, or arrhythmias. She tolerated dual antiplatelet therapy, low-dose beta-blockade , she has ambulated without any issues. Her groin exam is normal. She received full discharge instructions. Her is her main caregiver. She has dementia. They received full discharge instructions including need for long -term dual antiplatelet therapy. CC: Dr. Roscoe Malhotra; Dr. Wallace* [id number]/[facility] #: [id number] MTDD
== END 2016-07-17 12:30 | disposition home or self-care (01) | DRG 247 ==
LOC: ED 01:02 → CHICATH 01:50 → ICU 02:30 → MEDTELE 07-16 12:01
PROVIDERS: ADMIT Internal Medicine Cardiovascular Disease; ATTEND Internal Medicine Cardiovascular Disease
PROC: 027034Z Dilation of Coronary Artery, One Artery with Drug-eluting Intraluminal Device, Percutaneous Approach (ICD-10-PCS; 2016-07-15)
PROC: B2151ZZ Fluoroscopy of Left Heart using Low Osmolar Contrast (ICD-10-PCS; 2016-07-15)
PROC: 4A023N7 Measurement of Cardiac Sampling and Pressure, Left Heart, Percutaneous Approach (ICD-10-PCS; 2016-07-15)
PROC: 3E03317 Introduction of Other Thrombolytic into Peripheral Vein, Percutaneous Approach (ICD-10-PCS; 2016-07-15)
PROC: B2111ZZ Fluoroscopy of Multiple Coronary Arteries using Low Osmolar Contrast (ICD-10-PCS; principal; 2016-07-15 01:00)
DX: I21.19 ST elevation (STEMI) myocardial infarction involving other coronary artery of inferior wall (principal); G30.9 Alzheimer's disease, unspecified; F02.80 Dementia in other diseases classified elsewhere, unspecified severity, without behavioral disturbance, psychotic disturbance, mood disturbance, and anxiety; I10 Essential (primary) hypertension; E78.5 Hyperlipidemia, unspecified; I25.10 Atherosclerotic heart disease of native coronary artery without angina pectoris; E78.00 Pure hypercholesterolemia, unspecified; F41.9 Anxiety disorder, unspecified; Z98.61 Coronary angioplasty status; Z97.4 Presence of external hearing-aid; Z90.49 Acquired absence of other specified parts of digestive tract; Z98.42 Cataract extraction status, left eye; Z98.41 Cataract extraction status, right eye; Z82.49 Family history of ischemic heart disease and other diseases of the circulatory system; Z72.89 Other problems related to lifestyle; Z87.891 Personal history of nicotine dependence; Z79.82 Long term (current) use of aspirin; Z79.02 Long term (current) use of antithrombotics/antiplatelets
CPT/HCPCS: 36415; 80048; 80053; 80061; 82550; 82553; 83605; 83721; 83874; 83880; 84484; 85025; 85610; 85730; 86850; 86900; 86901; 93005; 93306; A9270-GY; C1725; C1769; C1876; C1887; C9606-RC; J0583; J1644; J2250; J3010

== ENCOUNTER 2019-05-26 18:30 | Emergency (ER) | payer MEDICARE, BC ==
--- NOTE | 2019-05-26 19:00 | ED ---
Complex/Multi-Sys Presentation - HPI Summary HPI Summary: Patient is a 78 y/o F presenting to [facility] via EMS for concerns of possible esophageal FB obstruction. Around an hour ago, 05/26/19, she was eating chicken and meatballs when she suddenly appeared to be choking. Patient became able to breathe, but she had difficulty swallowing. Daughter states that when she was given fluids to drink, she observed a "gurgling" sound and the patient would subsequently spit up the water. PO challenge was done in the room. She was able to successfully swallow water without complication besides some mild pain when swallowing. Patient denies abdominal pain. Family notes that there are also concerns for UTI, but they have not been able to obtain a UA yet. Home medications and allergies are reviewed. - History Of Current Complaint Chief Complaint: EDForeignBodyEsophag Time Seen by Provider: 05/26/19 18:36 Hx Obtained From: Patient, Family/Fruit Harvester Onset/Duration: Lasting Hours Timing: Hours Location: Pain At: - throat when swallowing Aggravating Factor(s): swallowing Associated Signs And Symptoms: Positive: Other - positive - FB sensation, pain with swallowing, UTI Sx. Negative: Abdominal Pain - Allergies/Home Medications Allergies/Adverse Reactions: Allergies Allergy/AdvReac Type Severity Reaction Status Date / Time No Known Allergies Allergy Verified 06/29/16 14:52 PMH/Surg Hx/FS Hx/Imm Hx Endocrine/Hematology History: Denies: Hx Diabetes, Hx Anemia, Hx Unexplained Bleeding Cardiovascular History: Reports: Hx Angina - prior to angioplasty, Hx Angioplasty, Hx Coronary Artery Disease - CHOLESTEROL CONTROL WITH MEDICATION, Hx Hypercholesterolemia, Hx Hypertension, Other Cardiovascular Problems/ Disorders - Hx HTN, no longer being treated, Hx of murmur, Hx angioplasty Denies: Hx Aneurysm, Hx Auto Implanted Cardiovert Defib, Hx Cardiac Arrest, Hx Cardiomegaly, Hx Congenital Heart Disease, Hx Congestive Heart Failure, Hx Deep Vein Thrombosis, Hx Embolism, Hx Hypotension, Hx Pacemaker/ICD, Hx Peripheral Vascular Disease, Hx Rheumatic Fever, Hx Syncope Comment Only: Hx Valvular Heart Disease - ANGIOPLASTY R/T VALVE PROBLEMS GI History: Reports: Hx Ulcer, Other GI Disorders - Hx ulcer r/t excess use of excedrin Sensory History: Reports: Hx Contacts or Glasses, Hx Hearing Aid Opthamlomology History: Reports: Hx Contacts or Glasses Neurological History: Reports: Hx Dementia, Other Neuro Impairments/Disorders - forgetfulness Denies: Hx Developmental Delay, Hx Headaches, Hx Migraine, Hx Nerve Disease, Hx Seizures, Hx Spinal Cord Injury, Hx Transient Ischemic Attacks (TIA) Psychiatric History: Denies: Hx Panic Disorder - Cancer History Hx Chemotherapy: No Hx Radiation Therapy: No - Surgical History Surgery Procedure, Year, and Place: Angioplasty 1990 states no stents, tonsillectomy as a child, cholecystectomy 1968, done in . bilateral cataracts Hx Anesthesia Reactions: No Infectious Disease History: No Infectious Disease History: Denies: Traveled Outside the [place] in Last 30 Days - Family History Known Family History: Positive: Cardiac Disease - Social History Alcohol Use: Weekly Alcohol Amount: 2 glasses wine Substance Use Type: Reports: None Smoking Status (MU): Former Smoker Type: Cigarettes Have You Smoked in the Last Year: No Review of Systems ENT: Other - positive - FB sensation, pain when swallowing Negative: Abdominal Pain Genitourinary: Other - positive - UTI Sx All Other Systems Reviewed And Are Negative: Yes Physical Exam - Summary Physical Exam Summary: Appearance: Well-appearing, Well-nourished, lying in bed comfortable Skin: Warm, dry, no obvious rash Eyes: sclera anicteric, no conjunctival pallor ENT: mucous membranes moist Neck: deferred Respiratory: No signs of respiratory distress Cardiovascular: Appears well perfused, pulses are nml Abdomen: deferred Musculoskeletal: Moving all 4 extremities without obvious discomfort Neurological: Awake and alert, mentation is normal, speech is fluent and appropriate Psychiatric: affect is normal, does not appear anxious or depressed Triage Information Reviewed: Yes Vital Signs On Initial Exam: Initial Vitals Temp Pulse Resp BP Pulse Ox 98.3 F 57 16 174/100 96 05/26/19 18:31 05/26/19 18:31 05/26/19 18:31 05/26/19 18:31 05/26/19 18:31 Vital Signs Reviewed: Yes Procedures - Sedation Patient Received Moderate/Deep Sedation with Procedure: No Diagnostics - Vital Signs Vital Signs Temp Pulse Resp BP Pulse Ox 05/26/19 18:31 98.3 F 57 16 174/100 96 - Laboratory Lab Statement: Any lab studies that have been ordered have been reviewed, and results considered in the medical decision making process. Re-Evaluation - Re-Evaluation First Eval Re-Evaluation Time: 19:48 Comment: Results of UA were discussed. Patient to be discharged to home with Keflex prescription and PCP follow-up. Complex Multi-Symp Course/Dx Course Of Treatment: Patient is a 78 y/o F presenting to [facility] via EMS for concerns of possible esophageal FB obstruction. Around an hour ago, 05/26/19, she was eating chicken and meatballs when she suddenly appeared to be choking. Patient became able to breathe, but she had difficulty swallowing. Daughter states that when she was given fluids to drink, she observed a "gurgling" sound and the patient would subsequently spit up the water. PO challenge was done in the room. She was able to successfully swallow water without complication besides some mild pain when swallowing. Patient denies abdominal pain. Family notes that there are also concerns for UTI, but they have not been able to obtain a UA yet. Physical exam is unremarkable. UA showed turbid urine appearance, 2+ protein, 3+ blood, positive nitrate, positive urobilinogen, 2+ leukocyte esterase, 3+ WBC, 3+ RBC, squamous epith cells present, 3+ bacteria. Urine cultures sent. During ED course, patient received 500 mg PO Keflex. Results of UA were discussed. Patient to be discharged to home with Keflex prescription and PCP follow-up. - Diagnoses Provider Diagnoses: Esophageal foreign body, UTI (urinary tract infection) Discharge ED - Sign-Out/Discharge Documenting (check all that apply): Patient Departure - discharge - Discharge Plan Condition: Good Disposition: HOME Prescriptions: Cephalexin CAP* [Keflex CAP*] 500 mg PO QID #28 cap Patient Education Materials: Esophageal Foreign Body (ED), Urinary Tract Infection in Older Adults (ED) Referrals: Ximena Langley MD [Primary Care Provider] - - Attestation Statements Document Initiated by Scribe: Yes Documenting Scribe: KATHARINA VALENCIA Provider For Whom Rodibbren is Documenting (Include Credential): KIKE MARTINEZ MD Scribe Attestation: KATHARINA Guevara, carlosed for KIKE MARTINEZ MD on 05/26/19 at 1953. Status of Scribe Document: Ready
[2019-05-26 19:15] LABS: Urine Appearance Turbid; Urine Bilirubin Negative (Negative); Urine Blood 3+ (Negative); Urine Color Yellow; Urine Glucose Negative (Negative); Urine Ketones Negative (Negative); Urine Nitrite Positive (Negative); Urine Protein 2+(100 mg/dL) (Negative); Urine Specific Gravity 1.025 (1.010-1.030); Urine Urobilinogen Positive (Negative)
[2019-05-26 19:21] LABS: Urine Bacteria 3+ (Absent); Urine Red Blood Cell 3+(>10/hpf) (Absent); Urine Squamous Epithelial Cell Present (Absent); Urine White Blood Cell 3+(>20/hpf) (Absent)
[2019-05-26] MEDS ORDERED: Cephalexin CAP* 500 MG PO ONE ×2 (19:44→19:51)
[2019-05-26 20:43] VITALS: BP 175/68
--- NOTE | 2019-05-28 05:48 | ED ---
Imaging and Labs Follow Up Follow Up Type: Labs/Cultures Labs/Culture Result: Urine preliminary shows greater than 100,000 Escherichia coli Patient Communication/Plan: Patient treated with Keflex, presumed effective treatment for Escherichia coli. Awaiting sensitivity report. nothing Further at this time. Provider Diagnoses: Esophageal foreign body, UTI (urinary tract infection)
== END 2019-05-26 20:15 | disposition home or self-care (01) ==
LOC: ED 18:30
DX: T18.128A Food in esophagus causing other injury, initial encounter (principal); N39.0 Urinary tract infection, site not specified; X58.XXXA Exposure to other specified factors, initial encounter; Y92.9 Unspecified place or not applicable; I25.10 Atherosclerotic heart disease of native coronary artery without angina pectoris; E78.00 Pure hypercholesterolemia, unspecified; I10 Essential (primary) hypertension; F03.90 Unspecified dementia, unspecified severity, without behavioral disturbance, psychotic disturbance, mood disturbance, and anxiety; Z87.891 Personal history of nicotine dependence; Z79.899 Other long term (current) drug therapy
CPT/HCPCS: 81003; 81015; 87077; 87086; 87186; 99283; A9270-GY